=== PATIENT | female | born 1990 | race Hispanic/Latino ===

== ENCOUNTER 2023-10-13 13:46 | Emergency (ER) | payer MEDICAID, OTHER ==
[2023-10-13] MEDS ORDERED: Metoclopramide HCl 10 MG/2 ML VIAL ONE (14:46)
[2023-10-13 15:12] LABS: #Eosinphils 0.1 10x3/uL (0.0-0.5); #Monocytes 0.3 10x3/uL (0.0-1.1); #Neutrophils 4.8 10x3/uL (1.5-8.4); %Basophils 0.3 % (0.0-2.0); %Eosinophils 0.7 % (0.0-6.0); %Lymphocytes 22.4 % (18.0-47.0); %Monocytes 4.9 % (0.0-10.0); %Neutrophils 71.3 % (40.0-75.0); Hematocrit 33.6 % (34.9-44.5); Hemoglobin 11.4 g/dL (12.0-15.5); Mean Corpuscular HGB CONC 33.9 g/dL (32.0-36.0); Mean Corpuscular Hemoglobin 29.4 pg (27.0-33.0); Mean Corpuscular Volume 86.6 fl (81.6-98.3); Mean Platelet Volume 9.6 fl (7.4-10.4); Platelet Count 249 10x3/uL (150-450); RBC Distribution Width 12.7 % (11.5-14.5); Red Blood Cell (RBC) Count 3.88 10x6/uL (3.90-5.03); White Blood Cell (WBC) Count 6.7 10x3/uL (3.5-10.5)
[2023-10-13 15:13] LABS: Bilirubin Neg (Negative); Blood, Urine 150 (Negative); Glucose, Urine (Dipstick) Normal (Negative); Ketone, Urine Negative (Negative); Leukocyte 25 (Negative); Nitrite Negative (Negative); Protein, Urine (Dipstick) 15 mg/dl (Neg-Trace); Urobilinogen Normal mg/dL (Less than 2)
[2023-10-13 15:31] LABS: Clarity Hazy (Clear)
[2023-10-13 15:43] LABS: Bacteria/HPF 2+ HPF (None Seen); CAUTI Indications for Culture Pelvic or flank pain; Mucous/LPF 2+ LPF (<2+); WBC/HPF 0-3 HPF (0-3)
[2023-10-13 15:44] LABS: Urine Culture Reflex No No
== END 2023-10-13 17:18 | disposition home or self-care (01) ==
LOC: CSHERS 13:46
DX: O20.8 Other hemorrhage in early pregnancy (principal); I60.9 Nontraumatic subarachnoid hemorrhage, unspecified; Z3A.13 13 weeks gestation of pregnancy
CPT/HCPCS: 36415; 76856; 81001; 84702; 85025; 86900; 86901; J2765

== ENCOUNTER 2023-11-19 08:28 | Outpatient (CLI) | payer OTHER | END 2023-11-19 08:29 | disposition home or self-care (01) | LOC: CSHULT 08:28 | PROVIDERS: ATTEND Family Medicine | DX: Z34.81 Encounter for supervision of other normal pregnancy, first trimester (principal) | CPT/HCPCS: 76805 ==